=== PATIENT | male | born 1980 | race Caucasian/White ===

== ENCOUNTER 2022-04-26 04:39 | Day surgery (SDC) | payer OTHER ==
[2022-04-26] VITALS (224 sets, daily range): BP systolic 89–150; BP diastolic 46–104
[~2022-04-26] VITALS: Ht 182.9 cm; Wt 83.1 kg
[2022-04-26 07:44] LABS: BASO% 0.3 % (0-3); EOS% 3.2 % (0-8); HEMATOCRIT 42.6 % (39.0-50.0); HEMOGLOBIN 14.9 g/dl (14.0-18.0); IMMATURE GRANULOCYTES 0.5 % (0.0-5.0); LYMPH% 24.4 % (15-41); MEAN CELL VOLUME 89.9 fL CALC (80.0-100.0); MEAN CORPUSCULAR HGB 31.4 pG CALC (26.0-32.0); MONO% 13.2 % (2-13); NEUT# 4.26 thou/uL (1.82-7.42); NEUT% 58.4 % (42-76); RED BLOOD COUNT 4.74 mill/uL (4.70-6.10); RED CELL DISTRI WIDTH 12.5 % (11.5-15.5)
[2022-04-26 08:33] LABS: ALBUMIN 4.8 g/dL (3.2-5.0); ALKALINE PHOSPHATASE 59 u/l (38-126); ANION GAP 9 (6-22 (CALC)); BILIRUBIN, TOTAL 0.6 mg/dL (0.0-1.4); BUN 21 mg/dL (9-20); BUN/CREATININE RATIO 26 (12-20 (CALC)); CARBON DIOXIDE 28 mmol/l (22-30); CHLORIDE 104 mmol/l (95-108); CREATININE 0.8 mg/dL (0.7-1.3); GFR FOR AFR.AMER. > 60 ML/MIN (>=60 (CALC)); GFR OTHER RACES > 60 ML/MIN (>=60 (CALC)); POTASSIUM 3.7 mmol/l (3.5-5.1); SGOT/AST 26 u/l (17-59); SODIUM 138 mmol/l (137-146)
[2022-04-26] MEDS ORDERED: AMITRIPTYLINE H10 MG PO (09:21)
[2022-04-26] MEDS ORDERED: NALTREXONE50 MG PO (13:24)
[2022-04-26] MEDS ORDERED: CLONIDINE0.1 MG PO (13:25)
[2022-04-26] MEDS ORDERED: KLONOPIN2 MG PO (13:26)
[2022-04-27 03:40] VITALS: BP 110/69
[2022-04-27 04:54] LABS: ALKALINE PHOSPHATASE 59 u/l (38-126); ANION GAP 11 (6-22 (CALC)); BILIRUBIN, TOTAL 0.5 mg/dL (0.0-1.4); BUN 15 mg/dL (9-20); BUN/CREATININE RATIO 16 (12-20 (CALC)); CARBON DIOXIDE 26 mmol/l (22-30); CHLORIDE 108 mmol/l (95-108); CREATININE 0.9 mg/dL (0.7-1.3); GFR FOR AFR.AMER. > 60 ML/MIN (>=60 (CALC)); GFR OTHER RACES > 60 ML/MIN (>=60 (CALC)); MAGNESIUM 2.2 mg/dL (1.6-2.3); POTASSIUM 3.9 mmol/l (3.5-5.1); SGOT/AST 23 u/l (17-59); SODIUM 140 mmol/l (137-146); TOTAL PROTEIN 6.4 g/dL (6.3-8.2)
[2022-04-27 04:57] LABS: BASO% 0.2 % (0-3); HEMATOCRIT 40.8 % (39.0-50.0); HEMOGLOBIN 14.5 g/dl (14.0-18.0); IMMATURE GRANULOCYTES 0.2 % (0.0-5.0); LYMPH% 9.9 % (15-41); MEAN CELL VOLUME 87.6 fL CALC (80.0-100.0); MEAN CORPUSCULAR HGB 31.1 pG CALC (26.0-32.0); MEAN CORPUSCULAR HGB CONC 35.5 g/dL CAL (32.0-36.0); NEUT# 5.7 thou/uL (1.82-7.42); NEUT% 87.7 % (42-76); RED BLOOD COUNT 4.66 mill/uL (4.70-6.10); RED CELL DISTRI WIDTH 12.1 % (11.5-15.5)
[2022-04-27 07:00] VITALS: BP 103/64
[2022-04-27 08:01] VITALS: BP 103/64
== END 2022-04-27 15:26 | disposition home or self-care (01) | DRG 897 ==
LOC: MS2 04:39 → ANR 04:39 → MS2 15:58 → ANR 04-27 15:26
PROVIDERS: ATTEND Anesthesiology
DX: F11.20 Opioid dependence, uncomplicated (principal)
CPT/HCPCS: J2060; J2354; J3475